=== PATIENT | female | born 1955 | race Caucasian/White ===

== ENCOUNTER 2017-01-13 08:38 | Emergency (ER) | payer MEDICARE, BC ==
[~2017-01-13] VITALS: Ht 160 cm; Wt 72.0 kg
[~2017-01-13 08:38] MED LIST: ASPI81TA82 PO; CALC-137 PO; CITA20TA4 PO; CYCL5TAB PO; KELP100T PO; LEVO112T2 PO; LORTA5 PO; LUTE20CA PO; MAGN400C2 PO; PANT40IN3 PO; REST0.05 EACH EYE; TEMA30CA PO; VITA100020 IM; VITA200017 PO; XANA0.5T PO
[2017-01-13 08:45] VITALS: BP 109/73; PULSE 75; RESP 18; TEMP 97.8; O2SAT 94
--- NOTE | 2017-01-13 08:57 | PD ---
HPI Chief Complaint: Chest Pain Time Seen by Provider: 08:55 Travel History International Travel<30 days: No Contact w/Intl Traveler<30days: No Traveled to known affect area: No History of Present Illness HPI This is a 61-year-old female who presents to the emergency department with right sided chest pain that started at 8 AM this morning, constant, worse with deep breaths, improved with rest radiating to her neck and arm. She says it feels very similar to when she was diagnosed with a pulmonary embolism several months ago. She's been on Eliquis since then and has been doing well. She says she feels a little bit short of breath. She denies any orthopnea and denies any leg swelling. She also has congestive heart failure with an EF of 35 % and she says nobody knows why. She denies missing any of her Eliquis doses. PFSH Past Medical History Cancer: Yes (THYROID) Cardiovascular Problems: No Diabetes: No Endocrine: Yes Genitourinary: No Hepatitis: No Hiatal Hernia: No Immune Disorder: No Musculoskeletal: Yes (FIBROMYALGIA) Neurologic: Yes (MENIERE'S SYND.) Psychiatric: No Reproductive: No Respiratory: No Thyroid Disease: Yes ?: Not Past Surgical History Abdominal Surgery: Yes (APPY) AICD: No Endocrine Surgery: Yes (TOTAL THYROIDECTOMY) Joint Replacement: No Pacemaker: No Social History Tobacco Use: No Substance Use: No Allergies-Medications (Allergen,Severity, Reaction): Coded Allergies: No Known Allergies (Unverified , 10/01/14) Reported Meds & Prescriptions Reported Meds & Active Scripts Active Reported Probiotic (Lactobacillus Combination No.4) 3 Billion Cell Capsule Betaine HCl (Betaine HCl (Digestive Aid)) 300 Mg Tab 600 Mg PO BIDAC Co Q-10 (Coenzyme Q10 (Ubidecarenone)) 300 Mg Cap 300 Mg PO DAILY Magnesium Citrate 100 Mg Tab 500 Mg PO DAILY PRN B Complex (B-Complex Vitamins) 1 Cap 1 Cap PO DAILY Vitamin C (Ascorbic Acid) 1,000 Mg Tab.chew Calcium Citrate 250 Mg Calcium Tab 600 Mg PO DAILY Zeaxanthin (Zeaxanthin (Bulk)) 90 % Pow Lutein 20 Mg Cap 20 Mg PO DAILY Vitamin D3 (Cholecalciferol) 2,000 Unit Cap 2,500 Units PO DAILY Melatonin 5 Mg Tab 5 Mg PO HS Dicyclomine (Dicyclomine HCl) 10 Mg Cap 10 Mg PO BID PRN Meclizine (Meclizine HCl) 25 Mg Tab 25 Mg PO DAILY PRN Budesonide DR (Budesonide) 3 Mg Capdr 3 Mg PO DAILY Quetiapine (Quetiapine Fumarate) 50 Mg Tab 50 Mg PO HS Flexeril (Cyclobenzaprine HCl) 10 Mg Tab 10 Mg PO TID PRN Hydrocodone-Acetaminophen 7.5-325 mg Tab 1 Tab PO Q8HR PRN Alprazolam 0.5 Mg Tab 0.5 Mg PO Q8H PRN Cyanocobalamin Inj (Cyanocobalamin) 1,000 Mcg/Ml Inj 1,000 Mcg IM ONCE Restasis Opth 0.05% (Cyclosporine Opth 0.05%) 0.05% Emul 1 Drop EACH EYE BID Eliquis (Apixaban) 5 Mg Tab 5 Mg PO BID Losartan (Losartan Potassium) 25 Mg Tab 12.5 Mg PO DAILY Carvedilol 3.125 Mg Tab 3.125 Mg PO BID Fenofibrate 145 Mg Tab 145 Mg PO DAILY Dexilant (Dexlansoprazole) 60 Mg Cap.dr.bp 1 Cap PO DAILY Citalopram (Citalopram Hydrobromide) 40 Mg Tab 40 Mg PO DAILY Synthroid (Levothyroxine Sodium) 100 Mcg Tab 100 Mcg PO DAILY Review of Systems Except as stated in HPI: all other systems reviewed are Neg Physical Exam Narrative GENERAL:Well appearing, no acute distress SKIN: Focused skin assessment warm and dry. HEAD: Atraumatic. Normocephalic. EYES: Pupils equal and round. No injection or drainage. ENT: Moist mucous membranes NECK: Trachea midline. CARDIOVASCULAR: Regular rate and rhythm. No murmur appreciated. RESPIRATORY: Rales in the bilateral lung bases worse on the right, no accessory muscle use, breathing comfortably GASTROINTESTINAL: Abdomen soft, non-tender, nondistended. MUSCULOSKELETAL: No obvious deformities. NEUROLOGICAL: Awake and alert. No obvious cranial nerve deficits. Moving all extremities. PSYCHIATRIC: Appropriate mood and affect; insight and judgment normal. Data Data Last Documented VS Vital Signs Date Time Temp Pulse Resp B/P (MAP) Pulse Ox O2 Delivery O2 Flow Rate FiO2 01/13/17 11:52 63 18 119/80 (93) 96 Room Air 01/13/17 08:45 97.8 Orders Orders Electrocardiogram (01/13/17 08:56) B-Type Natriuretic Peptide (01/13/17 08:56) Complete Blood Count With Diff (01/13/17 08:56) Comprehensive Metabolic Panel (01/13/17 08:56) Prothrombin Time / Inr (Pt) (01/13/17 08:56) Act Partial Throm Time (Ptt) (01/13/17 08:56) Troponin I (01/13/17 08:56) Ecg Monitoring (01/13/17 08:56) Bilateral Bp Monitoring (01/13/17 08:56) Iv Access Insert/Monitor (01/13/17 08:56) Oximetry (01/13/17 08:56) Oxygen Administration (01/13/17 08:56) Sodium Chloride 0.9% Flush (Ns Flush) (01/13/17 09:00) Ct Pulmonary Angiogram (01/13/17 08:56) Iohexol 350 Inj (Omnipaque 350 Inj) (01/13/17 10:35) Troponin I (01/13/17 11:06) Labs Laboratory Tests Test 01/13/17 09:00 01/13/17 11:50 White Blood Count 8.4 TH/MM3 Red Blood Count 3.89 MIL/MM3 Hemoglobin 11.4 GM/DL Hematocrit 33.9 % Mean Corpuscular Volume 87.2 FL Mean Corpuscular Hemoglobin 29.3 PG Mean Corpuscular Hemoglobin Concent 33.6 % Red Cell Distribution Width 13.9 % Platelet Count 427 TH/MM3 Mean Platelet Volume 7.6 FL Neutrophils (%) (Auto) 53.7 % Lymphocytes (%) (Auto) 34.0 % Monocytes (%) (Auto) 9.2 % Eosinophils (%) (Auto) 2.4 % Basophils (%) (Auto) 0.7 % Neutrophils # (Auto) 4.4 TH/MM3 Lymphocytes # (Auto) 2.9 TH/MM3 Monocytes # (Auto) 0.8 TH/MM3 Eosinophils # (Auto) 0.2 TH/MM3 Basophils # (Auto) 0.1 TH/MM3 CBC Comment DIFF FINAL Differential Comment Prothrombin Time 11.0 SEC Prothromb Time International Ratio 1.0 RATIO Activated Partial Thromboplast Time 27.6 SEC Blood Urea Nitrogen 16 MG/DL Creatinine 0.96 MG/DL Random Glucose 100 MG/DL Total Protein 6.4 GM/DL Albumin 3.1 GM/DL Calcium Level 7.7 MG/DL Alkaline Phosphatase 61 U/L Aspartate Amino Transf (AST/SGOT) 9 U/L Alanine Aminotransferase (ALT/SGPT) 19 U/L Total Bilirubin 0.2 MG/DL Sodium Level 141 MEQ/L Potassium Level 3.3 MEQ/L Chloride Level 104 MEQ/L Carbon Dioxide Level 26.6 MEQ/L Anion Gap 10 MEQ/L Estimat Glomerular Filtration Rate 59 ML/MIN Troponin I LESS THAN 0.02 NG/ML LESS THAN 0.02 NG/ML B-Type Natriuretic Peptide 21 PG/ML MDM Medical Decision Making Medical Screen Exam Complete: Yes Emergency Medical Condition: Yes Interpretation(s) EKG: Left bundle branch block No leukocytosis Mild hypokalemia Troponin negative [address] pulmonary angiogram is negative for PE Differential Diagnosis Pulmonary embolism, acute coronary syndrome, pneumonia, costochondritis Narrative Course This is a 61-year-old female who presents to the emergency department with chest discomfort on the right side that's pleuritic in nature. She was concerned that she had a recurrence of a pulmonary embolism. She was placed on a monitor and an IV was established. Labs are obtained which were reassuring. EKG is nonischemic. Troponin was negative 2. CT was negative for pulmonary embolism. I think her pain would be very atypical for acute coronary syndrome given his right sided in nature. 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 Diagnosis Primary Impression: Atypical chest pain Additional Instructions: If you develop severe chest pain, shortness of breath, sweating, lightheadedness , dizziness or difficulty breathing return to the emergency department immediately. Followup with your mill attendant if your symptoms are not resolved. Med/Other Pt SpecificInfo: No Change to Meds Disposition: 01 DISCHARGE HOME Condition: Stable Zaria Drake MD Jan 13, 2017 08:57
[2017-01-13 08:59] VITALS: O2SAT 94
[2017-01-13] MEDS ORDERED: SODIUM CHLORIDE 0.9% FLUSH 10 ML FLUSH IVF PRN (09:00)
[2017-01-13 09:13] VITALS: BP_SYST 102; BP_SYST 103; BP_DIAS 67; BP_DIAS 70; PULSE 71
[2017-01-13 09:18] LABS: AUTOMATED NEUTROPHIL # 4.4 TH/MM3 (1.8-7.7); BASOPHIL # 0.1 TH/MM3 (0-0.2); BASOPHIL % 0.7 % (0.0-2.0); EOSINOPHIL # 0.2 TH/MM3 (0-0.4); EOSINOPHIL % 2.4 % (0.0-4.0); HEMATOCRIT 33.9 % (35.0-46.0); HEMO FLAGS DIFF FINAL; LYMPHOCYTE # 2.9 TH/MM3 (1.0-4.8); MEAN CELL VOLUME 87.2 FL (80.0-100.0); MEAN CORPUSCULAR HEMOGLOBIN 29.3 PG (27.0-34.0); MEAN CORPUSCULAR HGB CONC 33.6 % (32.0-36.0); MONO % 9.2 % (0.0-8.0); NEUT % 53.7 % (16.0-70.0); PLATELET COUNT 427 TH/MM3 (150-450); RED BLOOD COUNT 3.89 MIL/MM3 (4.00-5.30); RED CELL DISTRIBUTION WIDTH 13.9 % (11.6-17.2); WHITE BLOOD COUNT 8.4 TH/MM3 (4.0-11.0)
[2017-01-13] MEDS ORDERED: LOSA25TA PO (09:20)
[2017-01-13] MEDS ORDERED: REST0.05 EACH EYE (09:20)
[2017-01-13] MEDS ORDERED: CITA40TA4 PO (09:20)
[2017-01-13] MEDS ORDERED: CARV3.12 PO (09:20)
[2017-01-13] MEDS ORDERED: ALPR0.5T3 PO (09:20)
[2017-01-13] MEDS ORDERED: FENO145T2 PO (09:20)
[2017-01-13] MEDS ORDERED: APIX5TAB PO (09:20)
[2017-01-13] MEDS ORDERED: LEVO.1 PO (09:20)
[2017-01-13] MEDS ORDERED: DEXI60CA2 PO (09:20)
[2017-01-13] MEDS ORDERED: CYAN1000P IM (09:20)
[2017-01-13 09:26] LABS: APTT (PATIENT) 27.6 SEC (24.3-30.1)
[2017-01-13] MEDS ORDERED: HYDR-3580 PO (09:51)
[2017-01-13] MEDS ORDERED: MELA5TAB15 PO (09:51)
[2017-01-13] MEDS ORDERED: VITA2000 PO (09:51)
[2017-01-13] MEDS ORDERED: BUDE3CAP PO (09:51)
[2017-01-13] MEDS ORDERED: QUET5TAB PO (09:51)
[2017-01-13] MEDS ORDERED: CALC250T PO (09:51)
[2017-01-13] MEDS ORDERED: LUTE20CA PO (09:51)
[2017-01-13] MEDS ORDERED: LACT1CAP19 (09:51)
[2017-01-13] MEDS ORDERED: ZEAX5POW (09:51)
[2017-01-13] MEDS ORDERED: CYCL1TAB29 PO (09:51)
[2017-01-13] MEDS ORDERED: ASCO100037 (09:51)
[2017-01-13] MEDS ORDERED: BETA300T PO (09:51)
[2017-01-13] MEDS ORDERED: MAGN100T2 PO (09:51)
[2017-01-13] MEDS ORDERED: CO Q300C PO (09:51)
[2017-01-13] MEDS ORDERED: MECL-62 PO (09:51)
[2017-01-13] MEDS ORDERED: VITACAP7 PO (09:51)
[2017-01-13] MEDS ORDERED: DICY10CA12 PO (09:51)
[2017-01-13 09:54] LABS: BICARBONATE 26.6 MEQ/L (21.0-32.0)
[2017-01-13 09:57] LABS: ALT (GPT) 19 U/L (10-53); GLOMERULAR FILTRATION RATE 59 ML/MIN (>89)
[2017-01-13 09:59] LABS: TOTAL BILIRUBIN ADULT 0.2 MG/DL (0.2-1.0)
[2017-01-13 10:00] LABS: ALKALINE PHOSPHATASE 61 U/L (45-117)
[2017-01-13 10:03] LABS: ANION GAP 10 MEQ/L (5-15); CHLORIDE 104 MEQ/L (98-107); POTASSIUM 3.3 MEQ/L (3.5-5.1); SODIUM (NA) 141 MEQ/L (136-145)
[2017-01-13 10:17] LABS: AST (GOT) 9 U/L (15-37)
[2017-01-13 10:18] LABS: BLOOD UREA NITROGEN 16 MG/DL (7-18)
[2017-01-13] MEDS ORDERED: IOHEXOL 350 MG/ML 10 ML VIAL (for RAD DIAG) IVCONTRAST ONE (10:35)
--- NOTE | 2017-01-13 10:45 | RADRPT ---
EXAM DATE/TIME: 01/13/2017 10:30 [facility] COMPARISON: No previous studies available for comparison. INDICATIONS : Right chest pain. IV CONTRAST: 75 cc Omnipaque 350 (iohexol) IV RADIATION DOSE: 8.54 CTDIvol (mGy) MEDICAL HISTORY : Carcinoma, thyroid. Gastroesophageal reflux disease. Congestive heart failure.Meniere's disease. pul monary embolism. SURGICAL HISTORY : Hysterectomy. Thyroidectomy.Appendectomy. ENCOUNTER: Initial ACUITY: 1 day PAIN SCALE: 4/10 LOCATION: Right chest TECHNIQUE: Volumetric scanning of the chest was performed using a pulmonary embolism protocol MIP images were re constructed. Using automated exposure control and adjustment of the mA and/or kV according to patien t size, radiation dose was kept as low as reasonably achievable to obtain optimal diagnostic quality images. DICOM format image data is available electronically for review and comparison. Follow-up recommendations for detected pulmonary nodules are based at a minimum on nodule size and pa tient risk factors according to Fleischner Society Guidelines. FINDINGS: PULMONARY ARTERIES: No filling defects are seen in the pulmonary arteries through the segmental level. LUNGS: Linear atelectasis involving both lung bases as well as the lingula and right middle lobe. No infiltr ates. No masses. PLEURAE: There is no pleural thickening or pleural effusion. MEDIASTINUM: There is good visualization of the great vessels of the middle mediastinum. No evidence of mediastin al or hilar adenopathy/mass. MUSCULOSKELETAL: Within normal limits for patient age. MISCELLANEOUS: The visualized upper abdominal organs demonstrate no acute abnormality. CONCLUSION: 1. No acute intrathoracic abnormality. In particular, no pulmonary embolus. 2. Mild basilar atelectasis. Master Gastelum Jr., MD on January 13, 2017 at 10:40 Board Certified Radiologist. This report was verified electronically.
[2017-01-13 11:52] VITALS: BP 119/80; PULSE 63; RESP 18; O2SAT 96
--- NOTE | 2017-01-13 13:43 | EKG ---
Date Performed: 01/13/2017 Time Performed: 08:47:16 PTAGE: 61 years EKG: Sinus rhythm MARKED LEFT AXIS DEVIATION LEFT BUNDLE BRANCH BLOCK ABNORMAL ECG NO PREVIOUS TRACING DOCTOR: Manuel Dunham Interpretating Date/Time 01/13/2017 13:40:20
== END 2017-01-13 12:58 | disposition home or self-care (01) ==
LOC: PHED 08:38
DX: R07.89 Other chest pain (principal); R06.02 Shortness of breath; I50.9 Heart failure, unspecified; M79.7 Fibromyalgia; Z86.711 Personal history of pulmonary embolism
CPT/HCPCS: 71275; 80053; 83880; 84484; 85025; 85610; 85730; 93005; 99285; Q9967